=== PATIENT | male | born 1935 | race African-American/Black ===

== ENCOUNTER 2017-10-02 10:18 | Emergency (ER) | payer MEDICARE, OTHER ==
--- NOTE | 2017-10-02 11:07 | RAD ---
LEFT HIP TWO VIEWS: HISTORY: Fall. COMPARISON: Femur radiographs from 12/23/2015. FINDINGS: No displaced fracture or malalignment. There is a fracture of one of the inferior-most acetabular sc rews, chronic. Mild heterotopic ossification. Periosteal calcification is similar at the lateral ma rgin of the femur. IMPRESSION: No acute fracture. No hardware complication. POS: [facility]
--- NOTE | 2017-10-02 11:44 | RAD ---
LEFT KNEE RADIOGRAPHS FOUR VIEWS: Date: 10-02-17 Provided Clinical History: Left knee pain. FINDINGS: There is no evidence for fracture or other acute osseous abnormality. Alignment appears anatomic. Azra nt spaces appear preserved. Vascular calcifications are seen. No evidence for significant knee joint capsular distention. If there is persistent clinical concern, conservative management and follow up i kavitha are advised. IMPRESSION: As above. POS: [facility]
--- NOTE | 2017-10-02 11:58 | RAD ---
LEFT FEMUR RADIOGRAPH TWO VIEWS: Date: 10-02-17 Provided Clinical History: Comparison: 12-23-15 FINDINGS: Post-operative changes involving the left hip are redemonstrated without evidence for hardware loosen ing or migration involving the visualized portions of the construct. There is no evidence for fractur e or other acute osseous abnormality. If there is persistent clinical concern, conservative managemen t and follow up imaging are advised. IMPRESSION: As above. POS: [facility]
== END 2017-10-02 12:04 | disposition home or self-care (01) ==
LOC: NAV ERS 10:18
DX: S76.912A Strain of unspecified muscles, fascia and tendons at thigh level, left thigh, initial encounter (principal); S80.12XA Contusion of left lower leg, initial encounter; E78.5 Hyperlipidemia, unspecified; I10 Essential (primary) hypertension; M10.9 Gout, unspecified; M19.90 Unspecified osteoarthritis, unspecified site; Z86.73 Personal history of transient ischemic attack (TIA), and cerebral infarction without residual deficits; Z79.82 Long term (current) use of aspirin; Z79.899 Other long term (current) drug therapy; W01.0XXA Fall on same level from slipping, tripping and stumbling without subsequent striking against object, initial encounter

== ENCOUNTER 2021-06-13 11:29 | Emergency (ER) | payer MEDICARE, OTHER | END 2021-06-13 13:18 | disposition home or self-care (01) | LOC: NAV ERS 11:29 | DX: S23.41XA Sprain of ribs, initial encounter (principal); S60.221A Contusion of right hand, initial encounter; X58.XXXA Exposure to other specified factors, initial encounter ==

== ENCOUNTER 2021-07-29 23:15 | Emergency (ER) | payer MEDICARE, OTHER | END 2021-07-29 23:45 | disposition home or self-care (01) | LOC: NAV ERS 23:15 | DX: Z46.6 Encounter for fitting and adjustment of urinary device (principal); Z79.899 Other long term (current) drug therapy; Z79.82 Long term (current) use of aspirin; I10 Essential (primary) hypertension; E78.5 Hyperlipidemia, unspecified; E78.00 Pure hypercholesterolemia, unspecified; M10.9 Gout, unspecified; I49.9 Cardiac arrhythmia, unspecified; Z86.73 Personal history of transient ischemic attack (TIA), and cerebral infarction without residual deficits; Z87.891 Personal history of nicotine dependence; Z85.118 Personal history of other malignant neoplasm of bronchus and lung | CPT/HCPCS: 99283 ==

== ENCOUNTER 2021-09-17 14:15 | Observation (INO) | payer MEDICARE ==
[2021-09-17] MEDS ORDERED: Acetaminophen 500 MG TAB ONE (14:42)
[2021-09-17] MEDS ORDERED: Sodium Chloride 0.9% 1,000 ML ONE ×2 (14:54→15:19)
[2021-09-17] MEDS ORDERED: Ondansetron PF 4 MG/2 ML Vial ONE (14:54)
[2021-09-17] MEDS ORDERED: Sodium Chloride 0.9% 100 ML ONE ×2 (15:10→15:42)
[2021-09-17 15:11] LABS: #Lymphocytes 0.8 thou/uL (1.20-3.40); #Monocytes 0.4 thou/uL (0.11-0.59); %Basophils 0.7 % (0.0-1.0); %Eosinophils 0.1 % (0.0-10.0); %Lymphocytes 14.9 % (21.0-51.0); %Monocytes 7.8 % (0.0-10.0); %Neutrophils 76.5 % (42.0-75.0); Hemoglobin 11.9 g/dL (14.0-18.0); Mean Corpuscular HGB CONC 31.2 g/dL (32.0-36.0); Mean Corpuscular Hemoglobin 29.8 pg (27.0-31.0); Mean Corpuscular Volume 95.4 fL (78.0-98.0); Mean Platelet Volume 7.6 fL (7.4-10.4); Platelet Count 136 thou/uL (130-400); White Blood Cell (WBC) Count 5.2 thou/uL (4.8-10.8)
[2021-09-17 15:32] LABS: ALT (SGPT) 19 U/L (8-55); AST (SGOT) 29 U/L (5-34); Albumin 4.1 g/dL (3.4-4.8); Alkaline Phosphatase 135 U/L (40-110); Anion Gap 17 mmol/L (10-20); BUN (Urea Nitrogen) 15 mg/dL (8.4-25.7); Bilirubin, Total 0.4 mg/dL (0.2-1.2); Calc. Creatinine Clearance 0 mL/min (70-130); Calcium 10.3 mg/dL (7.8-10.44); Carbon Dioxide 21 mmol/L (23-31); Chloride 103 mmol/L (98-107); Globulin 4.2 g/dL (2.4-3.5); Glucose 86 mg/dL (83-110); Potassium 4.2 mmol/L (3.5-5.1); Protein, Total 8.3 g/dL (5.8-8.1); Sodium 137 mmol/L (136-145)
[2021-09-17] MEDS ORDERED: cefTRIAXone\\ROCEPHIN 2 GM VIAL ONE (15:41)
[2021-09-17 16:05] LABS: Bilirubin Negative (Negative); Blood, Urine Trace (Negative); Clarity Clear (Clear); Glucose, Urine (Dipstick) Negative (Negative); Ketone, Urine Negative (Negative); Leukocyte Negative (Negative); Nitrite Negative (Negative); Protein, Urine (Dipstick) Trace mg/dL (Neg-Trace); Urobilinogen 0.2 mg/dL (Less than 2)
[2021-09-17 16:10] LABS: RBC/HPF 0-3 HPF (0-3); WBC/HPF None Seen HPF (0-3)
[2021-09-17 16:11] LABS: Bacteria/HPF Rare-Few HPF (None Seen); Squamous Epithelial 0-3 HPF (0-3)
[2021-09-17] MEDS ORDERED: Promethazine 25 MG TAB PO PRN (18:58)
[2021-09-17] MEDS ORDERED: Promethazine HCl 25 MG SUPP PR PRN (18:59)
[2021-09-17] MEDS ORDERED: Acetaminophen 325 MG TAB PO PRN (19:00)
[2021-09-17] MEDS ORDERED: Azithromycin 250 MG TAB PO SCH (20:00)
[2021-09-17 20:09] VITALS: BMI 21.0
[2021-09-17] MEDS ORDERED: Acetaminophen 500 MG TAB PO PRN (20:21)
[2021-09-17] MEDS ORDERED: Albuterol Sulfate 2.5 mg/3 ml Neb NEB PRN (20:23)
[2021-09-17] MEDS ORDERED: Benzonatate 100 MG CAP PO PRN (20:24)
[2021-09-17] MEDS ORDERED: HYDROcodone/Acetaminophen 10/325 mg Tablet PO PRN (20:27)
[2021-09-17] MEDS: carBAMazepine 200 MG TAB PO SCH (20:36)
[2021-09-17] MEDS: cloNIDine 0.1 MG TAB PO SCH (20:39)
[2021-09-17] MEDS ORDERED: lamoTRIgine 25 MG TAB PO SCH (21:00)
[2021-09-17] MEDS ORDERED: Rosuvastatin 10 MG TAB PO SCH (21:00)
[2021-09-18] MEDS ORDERED: GLYCOPYRROLATE 1 MG PO PRN (00:57)
[2021-09-18] MEDS ORDERED: Potassium Chloride 20 MEQ TAB PO SCH (08:00)
[2021-09-18] MEDS: carBAMazepine 200 MG TAB PO SCH (08:08)
[2021-09-18] MEDS: cloNIDine 0.1 MG TAB PO SCH (08:50)
[2021-09-18] MEDS ORDERED: Lisinopril 20 MG TAB PO SCH (09:00)
[2021-09-18] MEDS ORDERED: Furosemide 20 MG TAB PO SCH (09:00)
[2021-09-18] MEDS ORDERED: Multivitamin W/ Minerals 1 TAB PO SCH (09:00)
[2021-09-18] MEDS ORDERED: Rivastigmine 9.5mg/24 Hour PATCH TOP SCH (09:00)
[2021-09-18] MEDS ORDERED: lamoTRIgine 100 MG TAB PO SCH (09:00)
[2021-09-18] MEDS ORDERED: Allopurinol 100 MG TAB PO SCH (09:00)
[2021-09-18 12:29] VITALS: BP 145/67; TEMP 96.7
[2021-09-18 15:32] LABS: SARS-CoV-2 NAA Rapid Test Not Detected (NotDetected)
[2021-09-18] MEDS ORDERED: Cefuroxime Axetil 250 MG TAB PO SCH (21:00)
[2021-09-18] MEDS ORDERED: Azithromycin 250 MG TAB PO SCH (21:00)
== END 2021-09-18 14:10 | disposition home or self-care (01) ==
LOC: NAV ERS 14:15 → NAV ACUTE 17:30
PROVIDERS: ADMIT Internal Medicine; ATTEND Internal Medicine
DX: I11.0 Hypertensive heart disease with heart failure (principal); I50.32 Chronic diastolic (congestive) heart failure; R50.9 Fever, unspecified; G40.909 Epilepsy, unspecified, not intractable, without status epilepticus; E78.5 Hyperlipidemia, unspecified; M19.90 Unspecified osteoarthritis, unspecified site; M10.9 Gout, unspecified; F03.90 Unspecified dementia, unspecified severity, without behavioral disturbance, psychotic disturbance, mood disturbance, and anxiety; Z86.73 Personal history of transient ischemic attack (TIA), and cerebral infarction without residual deficits; Z87.891 Personal history of nicotine dependence; Z79.82 Long term (current) use of aspirin; Z79.899 Other long term (current) drug therapy; Z95.810 Presence of automatic (implantable) cardiac defibrillator; Z20.822 Contact with and (suspected) exposure to COVID-19
CPT/HCPCS: 0240U; 71045; 80053; 81003; 81015; 83605; 85025; 93005; 96365; 96375; G0378; J0696; J2405; J3490; J7050

== ENCOUNTER 2021-09-19 08:57 | Emergency (ER) | payer MEDICARE ==
[2021-09-19] MEDS ORDERED: Ibuprofen 800 MG TAB ONE (09:48)
== END 2021-09-19 10:05 | disposition home or self-care (01) ==
LOC: NAV ERS 08:57
DX: J18.9 Pneumonia, unspecified organism (principal); I10 Essential (primary) hypertension; E78.5 Hyperlipidemia, unspecified; Z86.73 Personal history of transient ischemic attack (TIA), and cerebral infarction without residual deficits; Z87.891 Personal history of nicotine dependence; Z79.899 Other long term (current) drug therapy; Z79.82 Long term (current) use of aspirin
CPT/HCPCS: 99283

== ENCOUNTER 2021-10-26 14:47 | Emergency (ER) | payer MEDICARE ==
[2021-10-26 16:18] LABS: #Lymphocytes 0.9 thou/uL (1.20-3.40); #Monocytes 0.5 thou/uL (0.11-0.59); #Neutrophils 3.8 thou/uL (1.40-6.50); %Basophils 0.4 % (0.0-1.0); %Eosinophils 0.6 % (0.0-10.0); %Lymphocytes 17.9 % (21.0-51.0); %Monocytes 9.8 % (0.0-10.0); %Neutrophils 71.4 % (42.0-75.0); Hemoglobin 9.9 g/dL (14.0-18.0); Mean Corpuscular HGB CONC 31.7 g/dL (32.0-36.0); Mean Corpuscular Hemoglobin 31.1 pg (27.0-31.0); Mean Corpuscular Volume 97.9 fL (78.0-98.0); Mean Platelet Volume 6.5 fL (7.4-10.4); Platelet Count 142 thou/uL (130-400); RBC Distribution Width 14.3 % (11.5-14.5); Red Blood Cell (RBC) Count 3.17 mill/uL (4.70-6.10); White Blood Cell (WBC) Count 5.3 thou/uL (4.8-10.8)
[2021-10-26 16:32] LABS: ALT (SGPT) 15 U/L (8-55); AST (SGOT) 29 U/L (5-34); Albumin 3.3 g/dL (3.4-4.8); Alkaline Phosphatase 152 U/L (40-110); Anion Gap 13 mmol/L (10-20); BUN (Urea Nitrogen) 23 mg/dL (8.4-25.7); Bilirubin, Total 0.3 mg/dL (0.2-1.2); Calc. Creatinine Clearance 0 mL/min (70-130); Calcium 9.7 mg/dL (7.8-10.44); Carbon Dioxide 28 mmol/L (23-31); Chloride 101 mmol/L (98-107); Globulin 3.5 g/dL (2.4-3.5); Glucose 141 mg/dL (83-110); Potassium 3.2 mmol/L (3.5-5.1); Protein, Total 6.8 g/dL (5.8-8.1); Sodium 139 mmol/L (136-145)
[2021-10-26 16:45] LABS: Bilirubin Negative (Negative); Blood, Urine Negative (Negative); Clarity Clear (Clear); Glucose, Urine (Dipstick) Negative (Negative); Ketone, Urine Negative (Negative); Leukocyte Negative (Negative); Nitrite Negative (Negative); Protein, Urine (Dipstick) 30 mg/dL (Neg-Trace); Specific Gravity, Urine 1.015 (1.005-1.030); Urobilinogen 0.2 mg/dL (Less than 2); pH, Urine 5.5 (5.0-9.0)
[2021-10-26 16:57] LABS: Squamous Epithelial 0-3 HPF (0-3); WBC/HPF 0-3 HPF (0-3)
== END 2021-10-26 17:33 | disposition home or self-care (01) ==
LOC: NAV ERS 14:47
DX: I95.9 Hypotension, unspecified (principal); E86.9 Volume depletion, unspecified; R62.51 Failure to thrive (child); I10 Essential (primary) hypertension; R56.9 Unspecified convulsions; I25.10 Atherosclerotic heart disease of native coronary artery without angina pectoris; Z79.899 Other long term (current) drug therapy
CPT/HCPCS: 51701; 71045; 80053; 81003; 81015; 82274; 83605; 85025; 93005

== ENCOUNTER 2021-10-28 15:24 | Emergency (ER) | payer MEDICARE ==
[2021-10-28 16:10] LABS: #Lymphocytes 0.7 thou/uL (1.20-3.40); #Monocytes 0.5 thou/uL (0.11-0.59); #Neutrophils 3.6 thou/uL (1.40-6.50); %Basophils 0.4 % (0.0-1.0); %Eosinophils 0.3 % (0.0-10.0); %Lymphocytes 15.1 % (21.0-51.0); %Monocytes 9.7 % (0.0-10.0); %Neutrophils 74.4 % (42.0-75.0); Hemoglobin 9.9 g/dL (14.0-18.0); Mean Corpuscular HGB CONC 32.4 g/dL (32.0-36.0); Mean Corpuscular Hemoglobin 31.2 pg (27.0-31.0); Mean Corpuscular Volume 96.4 fL (78.0-98.0); Mean Platelet Volume 7.2 fL (7.4-10.4); Platelet Count 151 thou/uL (130-400); RBC Distribution Width 14.1 % (11.5-14.5); Red Blood Cell (RBC) Count 3.16 mill/uL (4.70-6.10); White Blood Cell (WBC) Count 4.9 thou/uL (4.8-10.8)
[2021-10-28 16:28] LABS: ALT (SGPT) 20 U/L (8-55); AST (SGOT) 35 U/L (5-34); Albumin 3.3 g/dL (3.4-4.8); Alkaline Phosphatase 142 U/L (40-110); Anion Gap 13 mmol/L (10-20); BUN (Urea Nitrogen) 20 mg/dL (8.4-25.7); Bilirubin, Total 0.4 mg/dL (0.2-1.2); Calc. Creatinine Clearance 0 mL/min (70-130); Calcium 9.8 mg/dL (7.8-10.44); Carbon Dioxide 30 mmol/L (23-31); Chloride 99 mmol/L (98-107); Globulin 3.5 g/dL (2.4-3.5); Glucose 144 mg/dL (83-110); Magnesium 2.4 mg/dL (1.6-2.6); Potassium 3.4 mmol/L (3.5-5.1); Protein, Total 6.8 g/dL (5.8-8.1); Sodium 139 mmol/L (136-145)
== END 2021-10-28 18:00 | disposition home or self-care (01) ==
LOC: NAV ERS 15:24
DX: D64.9 Anemia, unspecified (principal); E86.0 Dehydration; R53.81 Other malaise; I25.10 Atherosclerotic heart disease of native coronary artery without angina pectoris; I10 Essential (primary) hypertension; Z79.899 Other long term (current) drug therapy
CPT/HCPCS: 80053; 83735; 84484; 85025; 93005; 94760

== ENCOUNTER 2021-11-06 22:46 | Emergency (ER) | payer MEDICARE ==
[2021-11-07 00:41] LABS: Bilirubin Negative (Negative); Blood, Urine Moderate (Negative); Clarity Clear (Clear); Glucose, Urine (Dipstick) Negative (Negative); Ketone, Urine Negative (Negative); Leukocyte Negative (Negative); Nitrite Negative (Negative); Protein, Urine (Dipstick) 30 mg/dL (Neg-Trace); Specific Gravity, Urine 1.015 (1.005-1.030); Urobilinogen 0.2 mg/dL (Less than 2)
[2021-11-07 00:46] LABS: Bacteria/HPF None Seen HPF (None Seen); Squamous Epithelial None Seen HPF (0-3); WBC/HPF 0-3 HPF (0-3)
== END 2021-11-07 01:00 | disposition home or self-care (01) ==
LOC: NAV ERS 22:46
DX: R31.9 Hematuria, unspecified (principal); I10 Essential (primary) hypertension; I25.10 Atherosclerotic heart disease of native coronary artery without angina pectoris; F03.90 Unspecified dementia, unspecified severity, without behavioral disturbance, psychotic disturbance, mood disturbance, and anxiety; Z86.73 Personal history of transient ischemic attack (TIA), and cerebral infarction without residual deficits; Z95.0 Presence of cardiac pacemaker; Z79.899 Other long term (current) drug therapy
CPT/HCPCS: 51702; 81003; 81015; 87086

== ENCOUNTER 2022-03-21 16:16 | Emergency (ER) | payer MEDICARE ==
[2022-03-21 17:26] LABS: Hemoglobin 10.1 g/dL (14.0-18.0); Mean Corpuscular HGB CONC 30.4 g/dL (32.0-36.0); Mean Corpuscular Hemoglobin 30.2 pg (27.0-31.0); Mean Corpuscular Volume 99.6 fL (78.0-98.0); Mean Platelet Volume 7.3 fL (7.4-10.4); Platelet Count 115 thou/uL (130-400); RBC Distribution Width 13.6 % (11.5-14.5); Red Blood Cell (RBC) Count 3.35 mill/uL (4.70-6.10); White Blood Cell (WBC) Count 3.1 thou/uL (4.8-10.8)
[2022-03-21 17:29] LABS: Anion Gap 16 mmol/L (10-20); BUN (Urea Nitrogen) 11 mg/dL (8.4-25.7); Calc. Creatinine Clearance 0 mL/min (70-130); Calcium 9.2 mg/dL (7.8-10.44); Carbon Dioxide 33 mmol/L (23-31); Chloride 98 mmol/L (98-107); Glucose 123 mg/dL (83-110); Sodium 145 mmol/L (136-145)
[2022-03-21 17:41] LABS: Potassium 2.4 mmol/L (3.5-5.1)
[2022-03-21 17:46] LABS: Macrocytosis SLIGHT = 6-15 cells (100X) (0-5/hpf)
[2022-03-21 17:47] LABS: Polychromasia SLIGHT = 2-3 cells (100X) (0-2/hpf); Target Cells MODERATE= 6-15 cells (100X) (0-1/hpf)
[2022-03-21 17:48] LABS: Platelet Morphology Comment Appears Decreased
[2022-03-21] MEDS ORDERED: Potassium Chloride 20 MEQ TAB PO SCH (18:30)
[2022-03-21] MEDS ORDERED: Potassium Chloride 20 MEQ TAB ONE (18:33)
== END 2022-03-21 19:05 | disposition home or self-care (01) ==
LOC: NAV ERS 16:16
DX: E87.6 Hypokalemia (principal); D64.9 Anemia, unspecified; I10 Essential (primary) hypertension; I25.10 Atherosclerotic heart disease of native coronary artery without angina pectoris; F03.90 Unspecified dementia, unspecified severity, without behavioral disturbance, psychotic disturbance, mood disturbance, and anxiety; Z79.899 Other long term (current) drug therapy; Z86.73 Personal history of transient ischemic attack (TIA), and cerebral infarction without residual deficits
CPT/HCPCS: 80048; 85025; 99284

== ENCOUNTER 2022-04-12 22:54 | Emergency (ER) | payer MEDICARE, OTHER ==
[2022-04-12] MEDS ORDERED: cloNIDine 0.1 MG TAB ONE (23:43)
[2022-04-12 23:44] LABS: Bilirubin Negative (Negative); Blood, Urine Negative (Negative); Clarity Clear (Clear); Glucose, Urine (Dipstick) Negative (Negative); Ketone, Urine Negative (Negative); Leukocyte Negative (Negative); Nitrite Negative (Negative); Protein, Urine (Dipstick) 30 mg/dL (Neg-Trace); Urobilinogen 0.2 mg/dL (Less than 2); pH, Urine 7.5 (5.0-9.0)
[2022-04-12 23:46] LABS: Bacteria/HPF None Seen HPF (None Seen); RBC/HPF 0-3 HPF (0-3); WBC/HPF 0-3 HPF (0-3)
[2022-04-12 23:49] LABS: #Lymphocytes 0.6 thou/uL (1.20-3.40); #Monocytes 0.3 thou/uL (0.11-0.59); #Neutrophils 4.5 thou/uL (1.40-6.50); %Basophils 0.2 % (0.0-1.0); %Eosinophils 0.5 % (0.0-10.0); %Lymphocytes 10.8 % (21.0-51.0); %Monocytes 5.2 % (0.0-10.0); %Neutrophils 83.3 % (42.0-75.0); Hemoglobin 10.8 g/dL (14.0-18.0); Mean Corpuscular HGB CONC 30.3 g/dL (32.0-36.0); Mean Corpuscular Hemoglobin 30.6 pg (27.0-31.0); Mean Platelet Volume 8.1 fL (7.4-10.4); Platelet Count 143 thou/uL (130-400); RBC Distribution Width 13.9 % (11.5-14.5); Red Blood Cell (RBC) Count 3.54 mill/uL (4.70-6.10); White Blood Cell (WBC) Count 5.4 thou/uL (4.8-10.8)
[2022-04-12 23:52] LABS: ALT (SGPT) 37 U/L (8-55); AST (SGOT) 44 U/L (5-34); Albumin 3.7 g/dL (3.4-4.8); Alkaline Phosphatase 158 U/L (40-110); Anion Gap 16 mmol/L (10-20); BUN (Urea Nitrogen) 14 mg/dL (8.4-25.7); Bilirubin, Total 0.4 mg/dL (0.2-1.2); Calc. Creatinine Clearance 0 mL/min (70-130); Calcium 10.5 mg/dL (7.8-10.44); Carbon Dioxide 28 mmol/L (23-31); Chloride 104 mmol/L (98-107); Estimated GFR 69; Globulin 3.5 g/dL (2.4-3.5); Glucose 116 mg/dL (83-110); Potassium 3.9 mmol/L (3.5-5.1); Protein, Total 7.2 g/dL (5.8-8.1); Sodium 144 mmol/L (136-145)
[2022-04-13 00:24] LABS: SARS-CoV-2 NAA Rapid Test Not Detected (NotDetected)
== END 2022-04-13 03:40 | disposition home or self-care (01) ==
LOC: NAV ERS 22:54
DX: E86.0 Dehydration (principal); F03.90 Unspecified dementia, unspecified severity, without behavioral disturbance, psychotic disturbance, mood disturbance, and anxiety; I10 Essential (primary) hypertension; I25.10 Atherosclerotic heart disease of native coronary artery without angina pectoris; Z20.822 Contact with and (suspected) exposure to COVID-19; Z79.899 Other long term (current) drug therapy
CPT/HCPCS: 0240U; 70450; 71045; 80053; 83605; 84484; 85025; 87040; 93005; 51701; 81003; 81015; 96360